=== PATIENT | male | born 1950 | race Caucasian/White ===

== ENCOUNTER → 2018-04-02 13:44 | Outpatient (CLI) | payer MEDICARE, SELFPAY ==
--- NOTE | 2018-04-02 14:35 | XR_ITS ---
XR chest 2V HISTORY: ITS.REASON: COUGH,WHEEZING ORDERING PHYSICIAN: Irvin Lott PATIENT AGE: 67 years COMPARISON: None FINDINGS: The cardiomediastinal silhouette and pulmonary vascularity are within normal limits. The lungs are clear without infiltrates, suspicious nodules, or pleural effusions. There are calcified nodes in right peritracheal region No acute bony abnormalities. IMPRESSION: No acute finding
== END ==
PROVIDERS: PCP Internal Medicine; Visit Provider Internal Medicine
DX: R05 Cough (principal); R06.2 Wheezing
CPT/HCPCS: 71046; 94060; 94640

== ENCOUNTER → 2019-10-27 09:42 | Outpatient (CLI) | payer MEDICARE, SELFPAY ==
[2019-10-27 12:22] LABS: Coronavirus 19 IgG Antibody Negative (Negative); Coronavirus 19 IgM Antibody Negative (Negative)
== END ==
PROVIDERS: Visit Provider Surgery
DX: Z01.818 Encounter for other preprocedural examination (principal); Z12.11 Encounter for screening for malignant neoplasm of colon
CPT/HCPCS: 36415; 86328

== ENCOUNTER 2019-10-28 06:32 | Day surgery (SDC) | payer MEDICARE, SELFPAY ==
[2019-10-28] VITALS (7 sets, daily range): BP systolic 98–118; BP diastolic 56–74; PULSE 42–60; RESP 18–22; TEMP 36.4–36.6; O2SAT 94–98; BMI 28.7
--- NOTE | 2019-10-28 07:34 | P.PN_ITS ---
[facility] Anesthesia Checklist - Patient Identification Patient Identification: Arm Band - Structural Data Admitted From: Home Planned Operative Procedure/s: colonoscopy Consent for Planned Operative Procedure(s) Verified: Yes Verified Documents: Surgical Consent, History and Physical - NPO Status Verified Time NPO: 00:00 - Additional verifications Anesthesia Reactions: No - Airway Assessment C-Spine Mobility Assessed: Yes (mp2) TMJ Mobility Assessed: Yes Dentition: Good Dentition - Neurological Assessment Level of Consciousness: Awake, Alert - Anesthesia Plan Anesthesia Risk discussed: Yes Anesthesia Plan: Verified ASA Class: II Anesthesia Type: MAC [facility] History I have reviewed the patient's past medical history: Yes Medical History: Reports:: Cancer (prostate), Lung Disease (bin) Denies:: Diabetes Mellitus Type 1, Diabetes Mellitus Type 2, Internal Pacemaker, MRSA, Seizures *Have you ever received a pneumonia vaccine?: No *Have you received a flu vaccine this season?: No Anesthesia experience/problems:: nac Laterality Cases: Right: Arthroscopy Knee, Bilateral: Tonsillectomy Other Surgeries: Yes: Colonoscopy, Other. No: Pacemaker Amputation: No Fractures: No - *Social History Last grade of school completed: Advanced degree Smoking Status: Never smoker Alcohol Intake: never Substance Use Type: denies use *Occupational Status:: employed Housing: house Household Members: spouse *Travel in the last 8 weeks: None Family Hx:: Cancer
--- NOTE | 2019-10-28 08:07 | [facility].SCOPE ---
- Procedure: Date: 10/28/19 Procedure Performed:: Colonoscopy with polypectomy by means other than snare Indications:: History of colon polyps Performing Provider:: Torey Crespo MD Referring Provider:: . Sedation:: Monitored anesthesia care Procedure:: After informed consent was obtained the patient was taken to the endoscopy suite. Sedation ensued after the patient was transferred to the left lateral decubitus position. Pulse, blood pressure, and oxygen saturation were monitored throughout the procedure. Digital rectal exam revealed no significant abnormality. The colonoscope was placed in position. The entire colon was evaluated. The colonoscope was carefully removed and the patient was transferred to recovery in stable condition. Please see findings and specimens below for detail. Findings:: Minimal hemorrhoidal tags Bowel preparation fair to moderate Significant lack of relaxation Small cecal polyp Specimens:: Cecal polyp Recommendations:: Timing of repeat colonoscopy is pending pathology but will likely be around 3 years secondary to slightly-limiting bowel preparation and lack of relaxation. Complications:: No immediate Estimated blood obtained (mL): 1
== END 2019-10-28 09:20 | disposition home or self-care (01) ==
LOC: OUTP 06:35
PROVIDERS: PCP Internal Medicine; Visit Provider Surgery
PROC: 0DJD8ZZ Inspection of Lower Intestinal Tract, Via Natural or Artificial Opening Endoscopic (ICD-10-PCS; CPT 45388; principal; 2019-10-28 07:30)
DX: Z12.11 Encounter for screening for malignant neoplasm of colon (principal); K63.5 Polyp of colon; D12.0 Benign neoplasm of cecum; Z86.010 Personal history of colon polyps; D64.9 Anemia, unspecified; Z85.46 Personal history of malignant neoplasm of prostate; G47.33 Obstructive sleep apnea (adult) (pediatric); Z87.39 Personal history of other diseases of the musculoskeletal system and connective tissue; Z90.89 Acquired absence of other organs; Z79.899 Other long term (current) drug therapy; Z82.3 Family history of stroke; Z80.9 Family history of malignant neoplasm, unspecified
CPT/HCPCS: 45388; 88305; J2704

== ENCOUNTER 2023-07-14 12:26 | Outpatient (CLI) | payer MEDICARE, SELFPAY ==
[2023-07-14 14:27] LABS: Basophils # 0.1 K/mm3 (0-0.2); Basophils % 0.7 % (0.1-2.0); Eosinophils # 0.5 K/mm3 (0.0-0.4); Hematocrit 39.8 % (42.0-52.0); Hemoglobin 13.1 g/dL (14.1-18.0); Lymphocytes # 1.8 K/mm3 (0.7-4.5); Lymphocytes % 23.8 % (10-50); Mean Corpuscular HGB Conc 32.8 g/dL (31.8-35.4); Mean Corpuscular Hemoglobin 31.5 pg (27.0-31.2); Mean Corpuscular Volume 95.9 fl (80-94); Monocytes # 0.7 K/mm3 (0.1-1.0); Monocytes % 9.3 % (1.7-9.3); Neutrophils # 4.4 K/mm3 (1.8-7.8); Neutrophils % 59.1 % (37.0-80.0); Platelet Count 358 K/mm3 (142-424); Red Blood Count 4.15 M/mm3 (4.60-6.20); Red Cell Distribution Width 13.4 % (11.5-17.5); White Blood Count 7.5 K/mm3 (4.8-10.8)
[2023-07-14 15:00] LABS: Chloride 102 mmol/L (98-107); Potassium 4.2 mmoL/L (3.5-5.1); Sodium 137 mmol/L (136-145)
[2023-07-14 15:02] LABS: Amylase 85 U/L (30-110); Blood Urea Nitrogen 12 mg/dl (9-20); Estimated Glomerular Filt Rate 96 ml/min (>60); GFR (African American) 116 ML/MIN (>60)
[2023-07-14 15:03] LABS: Alanine Aminotransferase 24 U/L (12-78); Albumin Level 3.8 g/dl (3.5-5.0); Albumin/Globulin Ratio 1.2 (1.1-1.8); Alkaline Phosphatase 85 U/L (38-126); Anion Gap 9.2 mEq/L (5-15); Aspartate Amino Transferase 28 U/L (17-59); Bilirubin,Total 1.2 mg/dl (0.2-1.3); Calcium 9.2 mg/dl (8.4-10.2); Carbon Dioxide 30 mmol/L (22.0-30.0); Globulin 3.2 g/dL (1.3-3.2); Glucose 74 mg/dl (74-100); Lipase 110 U/L (23-300)
== END 2023-07-14 23:59 | disposition home or self-care (01) ==
LOC: LAB.DROPOF 12:27
PROVIDERS: PCP Internal Medicine; Visit Provider Internal Medicine
DX: R10.13 Epigastric pain (principal); Z96.651 Presence of right artificial knee joint
CPT/HCPCS: 80053; 82150; 83690; 85025